=== PATIENT | female | born 1990 | race Native Hawaiian/Other Pacific Islander ===

== ENCOUNTER 2017-09-28 09:16 | Outpatient (CLI) | payer BC | END 2017-09-28 19:06 | disposition home or self-care (01) | LOC: US 09:16 | DX: Z33.1 Pregnant state, incidental (principal) ==

== ENCOUNTER 2018-08-28 12:51 | Outpatient (CLI) | payer BC | END 2018-08-28 21:08 | disposition home or self-care (01) | LOC: US 12:51 | DX: E05.90 Thyrotoxicosis, unspecified without thyrotoxic crisis or storm (principal) ==